=== PATIENT | female | born 1950 | race Caucasian/White ===

== ENCOUNTER 2021-03-03 14:07 | Outpatient (REF) | payer MEDICARE, SELFPAY ==
--- NOTE | ~2021-03-03 | XR_ITS ---
EXAMINATION: XR CLAVICLE, RIGHT CLINICAL INFORMATION: Lump near neck region. Costochondral junction syndrome. COMPARISON: None. TECHNIQUE: 2 views of the right clavicle. FINDINGS: There is no evidence of acute fracture of the right clavicle. No elevation of the distal clavicle at the acromioclavicular joint is identified. There is significant degenerative spurring about the acromioclavicular joint with some narrowing. There is calcification of the coracoclavicular ligament without evidence of widening of the coracoclavicular space. There is some mild spurring about the inferior aspect of the glenohumeral joint. Patient is status post median sternotomy. There is multilevel degenerative change of the cervical spine noted. XR/XR clavicle RT IMPRESSION: Degenerative change as described without evidence of acute fracture or subluxation.
== END 2021-03-03 14:08 | disposition home or self-care (01) ==
LOC: HO.XRAY 14:07
PROVIDERS: PCP Internal Medicine; Visit Provider Internal Medicine
DX: M94.0 Chondrocostal junction syndrome [Tietze] (principal)
CPT/HCPCS: 73000

== ENCOUNTER 2021-06-12 11:25 | Outpatient (REF) | payer MEDICARE, SELFPAY ==
--- NOTE | ~2021-06-12 | XR_ITS ---
EXAMINATION: XR CHEST CLINICAL INFORMATION: Cough COMPARISON: 03/03/2012 TECHNIQUE: 2 views of the chest were obtained. FINDINGS: Median sternotomy wires appear intact. Cardiac valvular hardware. The lungs are well expanded. There is no focal consolidation, edema, or effusion. No pneumothorax. The cardiomediastinal silhouette is within normal limits. No acute osseous abnormality. XR/XR chest 2V IMPRESSION: Clear lungs.
== END 2021-06-12 11:26 | disposition home or self-care (01) ==
LOC: HO.XRAY 11:25
PROVIDERS: PCP Internal Medicine; Visit Provider Physician Assistant Medical
DX: R05.9 Cough, unspecified (principal)
CPT/HCPCS: 71046